=== PATIENT | male | born 1970 | race Caucasian/White ===

== ENCOUNTER 2023-02-10 09:33 | Oncology outpatient (recurring) (ONCR) | payer MEDICARE, MEDICAID, SELFPAY ==
[2023-02-10 11:04] LABS: Basophils # 0.1 10^3/uL (0.0-0.1); Basophils % 0.7 %; Eosinophils # 0.5 10^3/uL (0.0-0.8); Eosinophils % 4.2 %; Hematocrit 46.8 % (42.0-52.0); Hemoglobin 15.6 g/dL (11.7-16.6); Lymphocytes # 2.8 10^3/uL (0.8-4.8); Lymphocytes % 23.5 %; Mean Corpuscular HGB Conc 33.3 g/dL (30.0-36.0); Mean Corpuscular Hemoglobin 31.3 pg (28.0-34.0); Mean Corpuscular Volume 93.8 fl (80-94); Mean Platelet Volume 9.4 fL (7.4-10.4); Monocytes # 0.8 10^3/uL (0.2-0.9); Monocytes % 6.7 %; Neutrophils # 7.72 10^3/uL (1.8-7.7); Neutrophils % 64.4 %; Nucleated Red Blood Cells % 0 %; Platelet Count 307 10^3/cmm (130-400); Red Blood Count 4.99 10^6/uL (4.1-5.3); Red Cell Distribution Width 13.8 % (12.1-15.1)
[2023-02-10 11:05] LABS: Erythrocyte Sedimentation Rate 11 mm/hr (0-10)
[2023-02-14 10:49] LABS: P190 BCR ALB1 NOT DETECTED; P190 BCR ALB1 Yes Test Yes; P210 BCR ALB1 NOT DETECTED; P210 BCR ALB1 Yes Test Yes; Prior Results BLOOD; Source Blood
== END 2023-02-14 23:59 | disposition home or self-care (01) ==
PROVIDERS: Visit Provider Internal Medicine Medical Oncology
DX: D72.829 Elevated white blood cell count, unspecified (principal); Z87.891 Personal history of nicotine dependence
CPT/HCPCS: 36415; 81206; 81207; 85025; 85651; 99203

== ENCOUNTER → 2023-03-08 09:20 | Outpatient (BNVA) | payer MEDICARE, MEDICAID, SELFPAY | PROVIDERS: Visit Provider Internal Medicine Cardiovascular Disease | DX: I25.10 Atherosclerotic heart disease of native coronary artery without angina pectoris (principal) | CPT/HCPCS: 93005; 99204 ==

== ENCOUNTER → 2023-03-29 08:52 | Outpatient (BNVA) | payer SELFPAY | PROVIDERS: Visit Provider Nurse Practitioner Family | DX: M12.811 Other specific arthropathies, not elsewhere classified, right shoulder; Z96.612 Presence of left artificial shoulder joint | CPT/HCPCS: 20610; 73030; 99203; J1100; J2795; J3301 ==

== ENCOUNTER → 2023-08-10 09:50 | Outpatient (BNVA) | payer MEDICARE, SELFPAY | PROVIDERS: PCP Family Medicine; Visit Provider Nurse Practitioner | DX: M19.011 Primary osteoarthritis, right shoulder (principal) | CPT/HCPCS: 20610; 99214; J1040; J2795; J3301 ==

== ENCOUNTER 2023-09-02 07:28 | Outpatient (CLI) | payer MEDICARE, SELFPAY ==
--- NOTE | 2023-09-02 08:45 | MR_ITS ---
WS: [id number] MRI RIGHT SHOULDER NONCONTRAST TECHNIQUE: Sagittal T2, coronal T1, T2 and proton density imaging. Axial gradient PDE imaging. CLINICAL INFORMATION: Right shoulder COMPARISON: None. FINDINGS: Moderate degenerative arthritis AC joint with mild edema. Small amount of subacromial subdeltoid flui d. Normal bone marrow signal in the humerus and glenoid. Tiny tear supraspinatus insertion. Mild tend inopathy distal supraspinatus with mild chronic thinning. Normal infraspinatus and teres minor. Subsc apularis appears intact. Medial subluxation of the biceps tendon in the proximal bicipital groove. In tra-articular biceps tendon appears intact. Small amount of fluid in the rotator interval. Biceps lab ral appears intact. Glenoid labrum appears grossly intact. IMPRESSION: 1. Moderate degenerative arthritis AC joint with fluid and edema. Small amount of subacromial subdel toid fluid. Slight subacromial spurring. 2. Mild tendinopathy distal supraspinatus with a tiny insertional tear. 3. Biceps tendon intact within the bicipital groove. Medial subluxation of the biceps tendon in the proximal bicipital groove. 4. Intra-articular biceps tendon appears intact. 5. No other acute findings.
== END 2023-09-02 07:29 | disposition home or self-care (01) ==
LOC: RAD 07:29
PROVIDERS: PCP Family Medicine; Visit Provider Nurse Practitioner
DX: M19.011 Primary osteoarthritis, right shoulder (principal); M75.101 Unspecified rotator cuff tear or rupture of right shoulder, not specified as traumatic
CPT/HCPCS: 73221

== ENCOUNTER → 2023-09-15 08:58 | Outpatient (BNVA) | payer MEDICARE, SELFPAY | PROVIDERS: PCP Family Medicine; Visit Provider Nurse Practitioner Family | DX: I25.10 Atherosclerotic heart disease of native coronary artery without angina pectoris (principal); I10 Essential (primary) hypertension; Z87.891 Personal history of nicotine dependence | CPT/HCPCS: 99214 ==

== ENCOUNTER 2023-09-23 00:56 | Inpatient (IN) | payer MEDICARE, SELFPAY ==
[2023-09-23] VITALS (14 sets, daily range): BP systolic 100–139; BP diastolic 60–88; PULSE 54–77; RESP 16–18; TEMP 36.4–36.7; O2SAT 94–96
--- NOTE | 2023-09-23 01:00 | PC.NURSE ---
Patient arrived to the floor at 0045 via ems. Patient has been oriented to room and call light.
[2023-09-23 01:48] LABS: Glucose Point of Care 161 mg/dL (70-110)
--- NOTE | 2023-09-23 04:33 | USCV_ITS ---
Emerson Ovalle Age: 52 Gender: M : 1970 Exam Date: 09/23/2023 09:25 Ordering Phys: Yocasta Thomas MD Technologist: ESTEFANY Exam Location: [facility] [place] Indication: TIA BP: 125 / 77 HR: 63 Rhythm: Sinus Technical Quality: Adequate MEASUREMENTS (Male / Female) Normal Values 2D ECHO LV Diastolic Diameter PLAX 4.7 cm 4.2 - 5.9 / 3.9 - 5.3 cm IVS Diastolic Thickness 1.1 cm 0.6 - 1.0 / 0.6 - 0.9 cm IVS Systolic Thickness 1.9 cm LVPW Diastolic Thickness 1.7 cm 0.6 - 1.0 / 0.6 - 0.9 cm LVPW Systolic Thickness 2.4 cm LVOT Diameter 2.0 cm LV Ejection Fraction 2D Teich 68.5 % LV Ejection Fraction MOD 2C 51.6 % LV Ejection Fraction 2C AL 53.2 % LA Diameter 3.5 cm RA Systolic Volume 4C AL 24.4 ml RA Systolic Volume 4C MOD 23.0 ml Aorta at Sinotubular Diameter 2.4 cm IVC Diameter 1.2 cm M-MODE LA Ao Ratio MM 1.2 AV Cusp Separation MM 2.0 cm DOPPLER AV Peak Velocity 122.0 cm/s LVOT Peak Velocity 92.0 cm/s AV Area Cont Eq vti 2.3 cm squared AV Area Cont Eq pk 2.4 cm squared MV Peak Velocity 91.0 cm/s MV Area PHT 4.1 cm squared Mitral E to A Ratio 0.9 TR Peak Velocity 149.0 cm/s TR Peak Gradient 8.9 mmHg TR Mean Velocity 123.0 cm/s TR Mean Gradient 6.4 mmHg TR Velocity Time Integral 42.1 cm TV Peak E Velocity 51.0 cm/s Right Atrial Pressure 3.0 mmHg Pulmonary Artery Systolic Pressu 11.9 mmHg PV Peak Velocity 101.0 cm/s RV Ejection Time 0.3 s FINDINGS Left Ventricle Normal left ventricular size, systolic function and wall thickness, with no regional wall motion abnormalities. Normal left ventricular wall thickness. Normal diastolic filling pattern. Left ventricular ejection fraction is estimated at 60 %. Right Ventricle The right ventricle is normal in size and function. Right Atrium The right atrium is normal in size. Left Atrium The left atrium is normal in size. Mitral Valve Structurally normal mitral valve without significant stenosis or prolapse. There is no mitral regurgitation. Aortic Valve Structurally normal aortic valve without significant sclerosis or stenosis. There is no aortic regurgitation. Tricuspid Valve Structurally normal tricuspid valve. Trace tricuspid valve regurgitation. Pulmonic Valve Pulmonic valve not well visualized. Trace pulmonary valve regurgitation. Pericardium Normal pericardium without effusion. Aorta Normal ascending aorta dimension. IVC The inferior vena cava appears normal. CONCLUSIONS Normal transthoracic echocardiogram. There are no prior echocardiogram studies to compare. Dr. Denzel Awan MD (Electronically Signed) Final Date: 23 September 2023 14:25 S
--- NOTE | 2023-09-23 04:50 | P.HP_ITS ---
Providers/Chief Complaint Admitting Physician: Yocasta Thomas MD Primary Care Provider: Chadd Arevalo History of Present Illness Emerson Ovalle is a 52 year old male who was transferred to us from [facility]. Patient was in his usual state of health until this evening when he was driving home from work at around 5 PM. He developed sudden onset chest pain which was radiating into his bilateral shoulders. He felt like he was going to pass out. He had transient loss of vision he went home and lay on the couch. Upon going home his daughter noticed that he had some slurred speech and weakness in one of his arms and he was therefore brought into the emergency room at [facility]. He has recently been started on Ozempic in addition to other existing diabetic medications as outpatient, fingerstick is not available from the time of events. Patient is not very forthcoming with his symptoms, states he does not want to repeat his history 1 more time. Therefore sequence of events is derived from talking to ER physician at [facility] and reviewing his chart from there. CT of the head did not show any acute intracranial events. Telestroke service was consulted at [facility], patient was not considered to be a tPA candidate as most of his symptoms had resolved by the time he presented to the emergency room. They did however recommend an MRI for which she has been transferred here. Patient denies any past history of stroke. He has a past medical history of coronary artery disease, currently on dual antiplatelet and atorvastatin. With regards to his chest pain, baseline troponin at [facility] was normal. EKG did not show any acute ST-T wave changes. CTA of the chest was negative for PE. CT of the abdomen and pelvis was additionally performed to evaluate for any dissection, study was negative for any vascular abnormalities, however incidentally showed thickening of the descending colon. Patient denies any abdominal symptoms. Denies any abdominal pain nausea vomiting diarrhea or change in his bowel habits. Denies any blood in stools. States he had a colonoscopy a few years ago at [facility], he does not recall the results of the same. Incidentally he was also noted to have leukocytosis with a white blood cell count of 14.7, predominant neutrophilia at 70%. Review of records shows that patient is previously established care with hematology for leukocytosis. It appears his baseline counts range at around 12,000. At the time of last being seen in February 2023, it was thought to be reactive. Bone marrow aspiration versus observation was discussed, of which patient opted for observation. Peripheral blood studies were negative for CML. He denies any fever chills URI symptoms Review of Systems General: Reports: 10 or more systems reviewed and unremarkable except in HPI and below Const: Denies: fever(s), chills or body aches Eyes: Denies: change in vision, blurry vision or photophobia ENMT: Reports: hoarseness; Denies: throat pain, enlarged tonsils, odynophagia or nasal congestion Card: Denies: chest pain, palpitations, irregular heart rhythm, edema, swelling of feet/ankles, lightheadedness, pre-syncope, dyspnea on exertion or orthopnea Resp: Denies: dyspnea, productive cough, non-productive cough, wheezing, stridor, pain on inspiration, change in phlegm color, hemoptysis or chest congestion GI: Denies: abdominal pain, nausea, vomiting, hematemesis, coffee ground emesis, dysphagia, heartburn, diarrhea, constipation, GI cramping, change in stool character, hematochezia or melena : Denies: flank pain, dysuria, urinary frequency, urinary urgency, urinary hesitancy or hematuria Musc: Denies: neck pain, back pain, extremity pain, joint swelling, joint warmth or deformity Neuro: Denies: headache(s), numbness in extremities, weakness in extremities, sensory changes, difficulty walking, frequent falls, dizziness, vertigo, behavioral changes, Slurred speech present or seizure-like activity Psych: Denies: anxiety, depression, suicidal ideation or homicidal ideation Endo: Denies: polyuria, polydipsia, tired all the time, cold intolerance or hot flashes Bautista/Lymph: Denies: easy bruising or easy bleeding Medications/Allergies Home Medications Medication Instructions Recorded Confirmed Last Taken Type acetaminophen 500 mg tablet 1,000 mg PO Q6H PRN 02/10/23 09/15/23 Unknown History albuterol sulfate 90 mcg/actuation 2 puff inhalation Q6H PRN 02/10/23 09/15/23 Unknown History aerosol inhaler shortness of breath aspirin 81 mg chewable tablet 81 mg PO DAILY 02/10/23 09/15/23 Unknown History atorvastatin 80 mg tablet 80 mg PO DAILY 02/10/23 09/15/23 Unknown History clopidogrel 75 mg tablet 75 mg PO DAILY 02/10/23 09/15/23 Unknown History diazepam 5 mg tablet 5 mg PO DAILY PRN 02/10/23 09/15/23 Unknown History empagliflozin 25 mg tablet 25 mg PO DAILY 02/10/23 09/15/23 Unknown History fluticasone 100 mcg-salmeterol 50 1 inh inhalation BID 02/10/23 09/15/23 Unknown History mcg/dose blistr powdr for inhalation (Advair Diskus) gentamicin 0.1 % topical cream 1 applic topical DAILY 02/10/23 09/15/23 Unknown History hydrocodone 5 mg-acetaminophen 325 1 tab PO Q6H PRN 02/10/23 09/15/23 Unknown History mg tablet insulin degludec 100 unit/mL (3 See Rx Instructions SUBCUT DAILY 02/10/23 09/15/23 Unknown History mL) subcutaneous pen (Tresiba FlexTouch U-100 insulin) isosorbide mononitrate 60 mg 60 mg PO DAILY 02/10/23 09/15/23 Unknown History tablet,extended release 24 hr metformin 500 mg tablet 1,000 mg PO BID 02/10/23 09/15/23 Unknown History methylphenidate HCl 20 mg tablet 10 mg PO BID 02/10/23 09/15/23 Unknown History metoprolol tartrate 50 mg tablet 50 mg PO BID 02/10/23 09/15/23 Unknown History mupirocin 2 % topical ointment 1 applic topical DAILY 02/10/23 09/15/23 Unknown History nitroglycerin 0.4 mg sublingual 0.4 mg sublingual Q5M PRN 02/10/23 09/15/23 Unknown History tablet nystatin 100,000 unit/gram topical 1 applic topical BID 02/10/23 09/15/23 Unknown History powder pantoprazole 40 mg tablet,delayed 40 mg PO DAILY 02/10/23 09/15/23 Unknown History release pregabalin 150 mg capsule See Rx Instructions PO BID 02/10/23 09/15/23 Unknown History tamsulosin 0.4 mg capsule 0.4 mg PO DAILY 02/10/23 09/15/23 Unknown History vortioxetine 20 mg tablet 20 mg PO DAILY 02/10/23 09/15/23 Unknown History cholecalciferol (vitamin D3) 25 25 mcg PO DAILY PRN 03/08/23 09/15/23 Unknown History mcg (1,000 unit) capsule ferrous sulfate 324 mg (65 mg 324 mg PO DAILY PRN 03/08/23 09/15/23 Unknown History iron) tablet,delayed release fluticasone propionate 50 2 spray intranasal DAILY PRN 03/08/23 09/15/23 Unknown History mcg/actuation nasal spray,suspension lisinopril 10 mg tablet 10 mg PO BID PRN 03/08/23 09/15/23 Unknown History naloxone 4 mg/actuation nasal 4 mg intranasal Q2M PRN 03/08/23 09/15/23 Unknown History spray (Narcan) Allergies Allergy/AdvReac Type Severity Reaction Status Date / Time dulaglutide Allergy Intermediate unkown Verified 09/15/23 09:07 butterscotch flavor Allergy Mild dizziness Uncoded 09/15/23 09:07 PFSH Acute PFSH: Medical History Coronary artery disease Primary osteoarthritis, right shoulder Anemia Anxiety Arthritis Asthma Carpal tunnel syndrome COPD (chronic obstructive pulmonary disease) Depression Diabetes mellitus Diverticulitis Gallstones Gastric ulcer GERD (gastroesophageal reflux disease) Headache Hernia of abdominal wall Hypertension Hyperlipemia STEMI (ST elevation myocardial infarction) Benign prostate hyperplasia Bandemia CRUZ (dyspnea on exertion) Osteoarthritis Cognitive impairment Neuropathy Jock itch Leukocytosis Surgical History Stented coronary artery H/O eye surgery H/O skin graft History of surgery on lower extremity History of facial surgery Family History Father CAD (coronary artery disease) Diabetes Hypertension Grandfather CAD (coronary artery disease) Diabetes Mother Chronic kidney disease (CKD) Dementia Diabetes Hypertension Psychiatric illness Brother Diabetes Stroke Other Suicide Social History Smoking and tobacco/nicotine status: former use of tobacco/nicotine Quit status (tobacco/nicotine): has quit using Year quit tobacco: not sure of quit year Former quit date comment: 15 years Alcohol intake: never Vitals/I&O/Wt Last Vital Signs Temp 97.6 F 09/23/23 04:33 Pulse 68 09/23/23 04:33 Resp 18 09/23/23 04:33 BP 103/66 09/23/23 04:33 Pulse Ox 95 09/23/23 04:33 O2 Del Method Room Air 09/23/23 04:33 Weight last 48 hrs Weight 95.39 kg Physical Exam Narrative: General: No acute distress, AO x3 HEENT: PERRLA, pupils bilaterally equal and reactive, pallors not present Chest: Normal vesicular breath sounds, no added sounds, equal good air entry bilaterally CVS: S1-S2 regular, no murmurs, no tachycardia, no gallops, no rubs Abdomen: Soft, nontender, no organomegaly, bowel sounds present Neuro: No focal deficits, no facial deformity, AO x3, power 5/5 in all limbs Extremities: No warmth erythema or tenderness at the right shoulder. Noted Palpable edema just anterior to the joint. Data Other Labs: From [facility] labs at 6:30 PM on September 22, 2023 WBC count 14.7, hemoglobin 15.9, platelets 297 Differential with neutrophil fill 10.24 INR 1.0 ESR 5 Lactate 2.4 initially upon arrival, repeat checked at 1.4 D-dimer 1.84 Sodium 137, potassium 4.5, bicarb 24, creatinine 0.98, glucose 213, T. bili 0.4, alkaline phosphatase 113, AST 17, ALT 24 Lipase 18 CRP 3.2 Magnesium 2.0 BNP 114 Baseline troponin less than [address] head without contrast no intracranial hemorrhage or mass effect Chest x-ray pulmonary vascular congestion and cardiomegaly CTA chest abdomen and pelvis: Thoracic aorta containing small amount of atherosclerotic plaque, no acute cardiopulmonary findings, nonobstructing left nephrolithiasis, moderate amount of stool and small amount of gas throughout the colon. Sigmoid colon and descending colon have multiple diverticula without any surrounding fat stranding. There is a long segment of mild to moderate diffuse wall thickening in the descending colon and sigmoid colon. No fat stranding surrounding the segment of colon. Unremarkable appendix. UA negative leukocyte esterase, negative nitrate, positive glucose Urine drug screen positive for opiates positive for benzodiazepines Blood culture pending A&P Assessment and plan (1) TIA (transient ischemic attack): 52-year-old male presenting at outside hospital today with chief complaint of developing chest discomfort, visual disturbance, slurred speech, weakness in the right hand which later resolved. Presented to outside ER with above complaints CT head negative for acute intracranial abnormalities Evaluated by telestroke at [facility], recommended to obtain MRI Admit the patient to [facility] for neuro monitoring he is not a tPA candidate due to resolution of symptoms telemetry monitoring on the unit to evaluate for underlying arrhythmias. CT head unremarkable Check carotid Doppler Echocardiogram ordered and pending Continue aspirin 81 mg daily, Plavix and atorvastatin 80 mg daily Holding home dose of antihypertensives. Upon first presentation at outside hospital patient's heart rate was between 52-62 and corresponding blood pressure at 93/58 systolic. Blood pressure currently is improved at 103/66. Will hold home doses of Imdur, lisinopril today. Continue metoprolol, however reduced dose from 50 mg twice daily to 25 mg twice daily. Alternate possibility of his neurological symptoms today may have been syncope related to hypotension and/or bradycardia. Close monitoring of vitals and telemetry. PT OT speech therapy assessment (2) Shoulder pain: Complains of shoulder pain worse on the right Recent MRI of the shoulder from September 02, 2023 had shown moderate degenerative arthritis AC joint with fluid and edema. Small amount of subacromial subdeltoid fluid. Noted subacromial spurring. Tendinopathy of the distal supraspinatus tendon with an insertional tear of the tendon. Medial subluxation of the biceps tendon in the proximal bicipital groove. He follows with orthopedics service, recently had steroid injection placed into the joint. As needed morphine alternating with hydrocodone/APAP for pain management. No swelling erythema warmth or tenderness at joint. Normal inflammatory markers including ESR and CRP. Low probability of septic arthritis. (3) Leukocytosis: Chronic leukocytosis for which patient has been evaluated by hematology in the past. Per review of notes patient has had intermittent neutrophilia dating back to 2019. He has had a prior flow cytometry in January 2020 which was negative. He had a PET scan in August 2022 which was negative for any evidence of gross malignancy. He has longstanding cervical lymphadenopathy however PET scan did not reveal any gross abnormalities. BCR-ABL mutation was negative. He has not been seen in follow-up since February 2023. No current localizing signs or symptoms of an infective process. (4) Colon wall thickening: Incidental finding with ascending colon mild to moderate thickening on CT abdomen and pelvis without fat stranding. Patient currently denies any abdominal symptoms including abdominal pain nausea or vomiting. He has not had any change in his bowel movements. No blood in stools. Abdominal exam is benign today. No tenderness encountered. He had a colonoscopy several years ago at [facility], does not recall results of the same. Lower concern for infectious colitis given absence of any abdominal symptoms and benign abdominal exam. Check procalcitonin. Monitor off antibiotics for now unless new symptoms develop. (5) Hypertension: Holding antihypertensives as noted above Qualifiers: Hypertension type: primary hypertension Qualified Code(s): I10 - Essential (primary) hypertension (6) Diabetes mellitus: Insulin sliding scale (7) COPD (chronic obstructive pulmonary disease): Not currently exacerbated, DuoNeb every 6 hours inhalation Plan Chest pain: CTA chest negative for PE. Troponin negative. Serial troponins to be checked now. Continue home doses of pregabalin, methylphenidate and vortioxetine DVT prophylaxis: Lovenox Full code Attestations Medical Necessity Statement*: Greater than 2 midnight stay is anticipated Coding Level of Care Code Acute Code for [facility] Fwd Diagnoses TIA (transient ischemic attack) G45.9 Shoulder pain M25.519 Leukocytosis D72.829 Colon wall thickening K63.9 Primary hypertension I10 Hypertension type: primary hypertension Diabetes mellitus E11.9 COPD (chronic obstructive pulmonary disease) J44.9
[2023-09-23] MEDS: morphine 4 mg/mL SDV 1 mL 2 MG IVP (04:59)
[2023-09-23] MEDS: enoxaparin 40 mg/0.4 mL Syringe SUBCUT (05:48)
[2023-09-23 05:51] LABS: Basophils # 0.1 10^3/uL (0.0-0.1); Basophils % 0.6 %; Eosinophils # 0.3 10^3/uL (0.0-0.8); Eosinophils % 3.5 %; Hematocrit 41.9 % (37-53); Lymphocytes # 3.3 10^3/uL (0.8-4.8); Lymphocytes % 34.2 %; Mean Corpuscular HGB Conc 33.4 g/dL (30-55); Mean Corpuscular Hemoglobin 30.7 pg (27-33); Mean Corpuscular Volume 91.9 fl (82-101); Mean Platelet Volume 9.7 fL (7.4-10.4); Monocytes # 0.8 10^3/uL (0.2-0.9); Monocytes % 8.1 %; Neutrophils # 5.14 10^3/uL (1.8-7.7); Neutrophils % 53.1 %; Nucleated Red Blood Cells % 0 %; Platelet Count 274 10^3/cmm (157-399); Red Blood Count 4.56 10^6/uL (3.85-5.65); Red Cell Distribution Width 12.9 % (12.1-15.1)
--- NOTE | 2023-09-23 05:55 | ECG_ITS ---
[facility] Test Date: 2023-09-23 Pat Name: Emerson Ovalle Department: Room: 276 Gender: Male Category Manager: : 1970 Requested By: Yocasta Thomas Order Number: [id number] Vicenta MD: Checo Dick M.D. Measurements Intervals [place] Rate: 56 P: 35 CT: 203 QRS: 29 QRSD: 102 T: 38 QT: 396 QTc: 385 Interpretive Statements SINUS BRADYCARDIA Compared to ECG 03/08/2023 09:25:31 Sinus rhythm no longer present Electronically Signed On 09-23-2023 17:32:51 HYDROGRAPHY TEACHER by Checo Dick M.D. [email or web address] general [id number]
[2023-09-23 06:07] LABS: Estmated Average Glucose 206; Hemoglobin A1C 8.8 % (4.0-6.0)
[2023-09-23 06:15] LABS: Troponin(5th) Baseline < 6 ng/L (0-15)
[2023-09-23 06:25] LABS: Procalcitonin 0.07 ng/mL (0-0.5)
[2023-09-23 06:36] LABS: Alanine Aminotransferase 20 U/L (0-41); Albumin Level 3.5 g/dL (3.5-5.2); Alkaline Phosphatase 94 U/L (40-130); Anion Gap 11.4 (5-19); Aspartate Amino Transferase 13 U/L (0-40); Blood Urea Nitrogen 18 mg/dL (6-20); Calcium 9.1 mg/dL (8.5-10.5); Carbon Dioxide 26 mmol/L (22-29); Chloride 107 mmol/L (98-107); Chol HDL Ratio 4.27 mg/dL (1.0-5.00); Cholesterol 141 mg/dL (0-200); Creatinine Clr Calc Pharmacy 118.6643; Globulin 2.2 g/dL (1.3-4.6); Glomerular Filtration Rate 101.5 mL/min (90-130); Glucose 120 mg/dL (65-115); HDL Cholesterol 33 mg/dL (60-100); LDL Cholesterol Calculated 61 mg/dL (50-129); LDL HDL Ratio 1.85 RATIO (0.00-3.22); Osmolality Calculated 293 mOsm/kg (285-295); Potassium 4.4 mmol/L (3.5-5.1); Sodium 140 mmol/L (136-145); Total Bilirubin 0.4 mg/dL (0.15-1.2); Total Protein 5.7 g/dL (6.6-8.7); Triglycerides 233 mg/dL (0-150)
[2023-09-23 06:40] LABS: Glucose Point of Care 146 mg/dL (70-110)
[2023-09-23 08:06] LABS: Troponin 5 2HR 6.32 ng/L (0-15); Troponin 5 2HR Delta 0.32001 ABS# (0-10)
[2023-09-23] MEDS: ipratropium-albuterol 3 mL Neb INHALATION (08:22)
[2023-09-23] MEDS: atorvastatin 40 mg Tablet 80 MG PO (09:03)
[2023-09-23] MEDS: metoprolol tartrate 50 mg Tablet 25 MG PO ×2 (09:04→17:14)
[2023-09-23] MEDS: pregabalin 150 mg Capsule 300 MG PO (09:04)
[2023-09-23] MEDS: aspirin 81 mg EC Tablet PO (09:04)
[2023-09-23] MEDS: clopidogrel 75 mg Tablet PO (09:04)
[2023-09-23] MEDS: pantoprazole DR 40 mg Tablet PO (09:04)
[2023-09-23] MEDS: tamsulosin 0.4 mg Capsule 0.400000000000000022 MG PO (09:05)
[2023-09-23] MEDS: lidocaine 5% Patch 1 PATCH TOPICAL (09:05)
[2023-09-23] MEDS: insulin lispro 100 unit/1 mL SUBCUT ×2 (09:06→17:14)
[2023-09-23] MEDS: methylphenidate 10 mg Tablet PO ×2 (09:09→17:14)
[2023-09-23] MEDS: HYDROcodone-acetaminophen 5-325 mg Tablet 1 TAB PO ×3 (09:15→18:43)
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
--- NOTE | 2023-09-23 09:36 | PC.PHAR ---
PTS DAUGHTER IS BRINGING PTS HOME MEDICATIONS IN- ETA 10:30 AM
--- NOTE | 2023-09-23 10:55 | PC.PHAR ---
PT WAS ON PLAVIX 75 MG DAILY- PRESCRIPTION 09/17/23 HAD 7 REFILLS REMAINING- PT STS HE TOOK IT LAST APROX. 1 WEEK AGO
[2023-09-23 11:01] LABS: Glucose Point of Care 135 mg/dL (70-110)
[2023-09-23 13:16] LABS: Troponin 5 6HR Delta 0.00001 ng/L (0-12)
[2023-09-23 16:52] LABS: Glucose Point of Care 190 mg/dL (70-110)
[2023-09-23] MEDS: pregabalin 150 mg Capsule PO (17:14)
--- NOTE | 2023-09-23 19:34 | PC.NURSE ---
Patient was awaiting an MRI which now has been decided to be done out patient. Patient then had to wait for his daughter to come and pick him up. Patient is A&Ox3. Respirations even and non-labored on room air. Patient wheel chaired to private car.
== END 2023-09-23 19:34 | disposition home or self-care (01) | DRG 69 ==
PROVIDERS: Admitting Provider Student in an Organized Health Care Education/Training Program; PCP Family Medicine; Visit Provider Internal Medicine
DX: G45.9 Transient cerebral ischemic attack, unspecified (principal); E11.42 Type 2 diabetes mellitus with diabetic polyneuropathy; I25.10 Atherosclerotic heart disease of native coronary artery without angina pectoris; J44.9 Chronic obstructive pulmonary disease, unspecified; F32.A Depression, unspecified; K21.9 Gastro-esophageal reflux disease without esophagitis; I10 Essential (primary) hypertension; E78.5 Hyperlipidemia, unspecified; M25.511 Pain in right shoulder; I25.2 Old myocardial infarction; Z79.02 Long term (current) use of antithrombotics/antiplatelets; Z79.85 Long-term (current) use of injectable non-insulin antidiabetic drugs; Z79.82 Long term (current) use of aspirin; Z79.4 Long term (current) use of insulin; Z79.84 Long term (current) use of oral hypoglycemic drugs; Z87.891 Personal history of nicotine dependence
CPT/HCPCS: 36415; 36416; 80053; 80061; 82962; 83036; 84145; 84484; 85025; 92610; 93005; 93306; 94640; 96372; 97165; J1650; J1815; J2270

== ENCOUNTER → 2023-10-10 09:42 | Outpatient (BNVA) | payer MEDICARE, SELFPAY | PROVIDERS: PCP Family Medicine; Visit Provider Nurse Practitioner | DX: M19.011 Primary osteoarthritis, right shoulder (principal); M67.911 Unspecified disorder of synovium and tendon, right shoulder | CPT/HCPCS: 36415; 80053; 85025; 99214 ==

== ENCOUNTER → 2023-11-16 09:07 | Outpatient (BNVA) | payer MEDICARE, SELFPAY | PROVIDERS: PCP Family Medicine; Visit Provider Family Medicine | DX: Z01.818 Encounter for other preprocedural examination (principal) | CPT/HCPCS: 85025 ==

== ENCOUNTER → 2023-11-29 09:17 | Outpatient (BNVA) | payer MEDICARE, SELFPAY | PROVIDERS: PCP Family Medicine; Visit Provider Family Medicine | DX: Z01.818 Encounter for other preprocedural examination (principal) | CPT/HCPCS: 81003 ==

== ENCOUNTER → 2023-12-02 10:04 | Outpatient (BNVA) | payer MEDICARE, SELFPAY | PROVIDERS: PCP Family Medicine; Visit Provider Family Medicine | DX: Z01.818 Encounter for other preprocedural examination (principal) | CPT/HCPCS: 80048; 85025 ==

== ENCOUNTER → 2024-03-15 11:43 | Outpatient (BNVA) | payer MEDICARE, SELFPAY | PROVIDERS: PCP Family Medicine; Visit Provider Internal Medicine Cardiovascular Disease | DX: I25.10 Atherosclerotic heart disease of native coronary artery without angina pectoris (principal); E78.2 Mixed hyperlipidemia; I10 Essential (primary) hypertension; R06.09 Other forms of dyspnea; Z87.891 Personal history of nicotine dependence | CPT/HCPCS: 99214 ==

== ENCOUNTER → 2024-03-26 08:15 | Outpatient (BNVA) | payer MEDICARE, SELFPAY | PROVIDERS: PCP Family Medicine; Visit Provider Nurse Practitioner | DX: M19.011 Primary osteoarthritis, right shoulder (principal); M67.911 Unspecified disorder of synovium and tendon, right shoulder | CPT/HCPCS: 20610; 99214; J1100; J2795; J3301 ==

== ENCOUNTER → 2024-05-14 08:19 | Outpatient (BNVA) | payer MEDICARE, SELFPAY | PROVIDERS: PCP Family Medicine; Visit Provider Nurse Practitioner | DX: M19.011 Primary osteoarthritis, right shoulder (principal); M67.911 Unspecified disorder of synovium and tendon, right shoulder; E11.9 Type 2 diabetes mellitus without complications; Z01.818 Encounter for other preprocedural examination | CPT/HCPCS: 36415; 80053; 81001; 83036; 85025; 93005; 99214 ==

== ENCOUNTER 2024-05-29 09:37 | Day surgery (SDC) | payer MEDICARE, SELFPAY ==
[2024-05-29] VITALS (12 sets, daily range): BP systolic 121–159; BP diastolic 75–99; PULSE 55–76; RESP 12–21; TEMP 36.1–36.6; O2SAT 92–95; BMI 33.6
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
[2024-05-29] MEDS: CELEcoxib 200 mg Capsule 400 MG PO (10:32)
[2024-05-29] MEDS: acetaminophen 1,000 MG/100 ML PIGGYBACK 400 MG IV (10:32)
[2024-05-29] MEDS: sodium chloride 0.9% 1,000 ML 30 ML IV (10:32)
[2024-05-29] MEDS: gabapentin 300 mg Capsule PO (10:33)
--- NOTE | 2024-05-29 10:38 | P.HPUD_ITS ---
Surgery/Procedure H&P Update DATE OF PROCEDURE: May 29, 2024 DATE H&P PERFORMED: 05/14/24 H&P UPDATE INFORMATION: I have reviewed H&P completed within last 30 days, I have examined patient prior to procedure, No changes to prior documentation and [place] [facility] [place] date indicated PRIMARY INDICATION FOR PROCEDURE: Right shoulder impingement, possible rotator cuff tear, and acromioclavicular joint osteoarthritis PLANNED PROCEDURE: Operation Date: 05/29/24 11:30 Proposed Procedures p Acromioplasty(Right) - MD chad Concepcion Distal Clavicle Resection(Right) - MD chad Concepcion Debridement Upper Extremity(Right) - MD cahd Concepcion Rotator Cuff Repair - Open(Right) - Alena Cueto MD Related Problem List Diagnoses (1) Rotator cuff arthropathy of right shoulder: (2) Tendinopathy of right rotator cuff: (3) Acromioclavicular joint pain: Qualifiers: Laterality: right Qualified Code(s): M25.511 - Pain in right shoulder
--- NOTE | 2024-05-29 10:50 | ANES.PROC ---
Anesthesia Procedures Procedure/Date: 05/29/24 Nerve Block ^: Nerve Block 1: Main Anesthesia: other (100mcg fentanyl and 2mg versed) Time Out Performed: Yes Consent: requested by attending/covering physician and from patient Nerve block location: interscalene Anesthesia monitors applied: pulse oximetry, EKG, BP cuff and oxygen Anesthetic Used: ropivicaine 0.5% Amount of anesthesia used (mL): 30 Ultrasound used to: recognize landmarks Nerve Stimulator Used?: Yes Interscalene/Femoral BLK: other needle (pjunk) Injection: neg aspiration of heme Patient Tolerated Procedure: well Complications: none
--- NOTE | 2024-05-29 11:13 | PC.NURSE ---
1040: KAMLA performed an interscalene block of right shoulder using ultrasound guidance and injecting 30 ml of .5% ropivicaine
[2024-05-29] MEDS: ceFAZolin 2,000 mg SDV 2000 MG IVP (11:14)
[2024-05-29] MEDS: ceFAZolin 1,000 mg SDV 1000 MG IRRIGATION (12:19)
--- NOTE | 2024-05-29 13:14 | P.OP_ITS ---
Operative Report Date of procedure: May 29, 2024 Pre-op diagnosis: Right rotator cuff arthropathy with acromioclavicular joint and glenohumeral joint osteoarthritis, impingement, and possible rotator cuff tear Post-op diagnosis: Right rotator cuff tear with acromioclavicular joint osteoarthritis as well as glenohumeral arthritis, impingement, and rotator cuff arthropathy Post-op findings: Complete tear of the supraspinatus insertion as well as impingement, osteoarthritis acromioclavicular joint and rotator cuff arthropathy Procedure done: Right shoulder rotator cuff repair with Biosteon Enterline anchor and with distal clavicle resection and acromioplasty with PRP Implants: Biosteon intra line 5.5 mm SCHROEDER suture anchor with 2 #2 Force Fiber's Specimens removed/disposition: Bone, disposed of Surgeon: Alena Cueto MD Software Licensing Analyst: Krystal Morejon, nurse practitioner, whose services were needed for positioning, retraction, and closure. Anesthesia: General (With interscalene block) Estimated blood loss (mL): 50 IV fluids (mL): 700 Urine output (mL): 0 (No Diggs) Complications: None Findings: Significant impingement with complete rotator cuff tear at the insertion of the supraspinatus tendon. Condition: stable Disposition: PACU Brief History: This 53 gentleman presented to the office for right shoulder pain evaluation. He had injection therapies which were unsuccessful. The patient continued to have symptoms. MRI demonstrated moderate acromioclavicular joint osteoarthritis with mild tendinopathy of the distal supraspinatus and an insertional site tear. The biceps tendon was intact. Surgical intervention was discussed with the patient. Questions were answered and consents were signed. The patient's A1c which was elevated previously when he was scheduled for surgical intervention had normalized and was felt acceptable for surgery. Consents were signed in the office. Procedure: The patient was brought to the operating theater and underwent general intubated anesthesia, ASA 3. The patient was placed in a beachchair position and subsequently the right upper extremity was prepped and draped in the usual fashion utilizing DuraPrep. The arm was draped free. A surgical pause was performed prior to commencement of the surgical procedure. At the time of the surgical pause, we confirmed the site and side of surgery as well as administration of appropriate preoperative antibiotics Ancef 2 g. MRI was also reviewed at that time. Following the surgical pause, an incision was made at approximate level of the acromioclavicular joint extending across the anterolateral corner of the acromion and distally as necessary. Care was taken to avoid injury to the axillary nerve by limiting the distal extent of the incision. Dissection continued through skin and soft tissues using a scalpel. Hemostasis was obtained using electrocautery. Soft tissues were elevated off the acromion. An acromioplasty was then accomplished using a combination of a saw and a power rasp. With this, we were able to remove compression caused by the acromion. The rotator cuff was then evaluated to look for tears. Bursectomy was accomplished. Evaluation of the rotator cuff then demonstrated a small horizontal type tear at the insertion point of the distal supraspinatus onto the greater tuberosity of the humerus. This was felt large enough to require a suture anchor with 2 sutures to repair. The edges were freshened using a scalpel. The reattachment point bony on the humeral head was addressed with a rongeur to prepare a bed for appropriate repair. An anchor was then placed to repair the horizontal portion of the tear. After the rotator cuff had been thus addressed, 0 Vicryl was utilized to smooth the edges at the level of the repair. Attention was directed to the acromioclavicular joint which was well exposed. A saw was then used to resect the distal clavicle without difficulty. The undersurface of the clavicle was palpated and was slightly further debrided. A power rasp was used to further smooth the area. When this was felt to be adequately resected, the wound was irrigated. The shoulder was placed through further range of motion to assure there was no further evidence of rotator cuff tear. Finding none, attention was then directed to closure. The wound was irrigated. PRP was then placed at the site of the rotator cuff repair, and closure was accomplished with 0 Vicryl in the capsular tissues overlying the acromioclavicular joint area as well as over the acromion and down into the deltoid muscle. 3-0 Monocryl was used to close the subcutaneous tissues followed by 4-0 Monocryl subcuticular closure. This was followed by Dermabond, Steri-Strips, and OpSite. An ABD was placed in the axilla. The patient was placed in a slingshot style sling and was returned to the recovery room in satisfactory condition. The patient will be discharged to home to follow-up in the office as scheduled. There were no complications and no specimens. Related Problem List Diagnoses (1) Right rotator cuff tear: (2) Rotator cuff arthropathy of right shoulder: (3) Impingement of right shoulder: (4) Arthritis of right acromioclavicular joint: (5) Primary osteoarthritis, right shoulder:
--- NOTE | 2024-05-29 13:29 | PC.NURSE ---
awakes to verbal stimuli. Oral airway removed
--- NOTE | 2024-05-29 14:55 | ANE.PACU2 ---
Inpatient post-anesthesia follow up: Airway intact: Yes Vital signs: Temperature 97.8 F Pulse Rate 62 Respiratory Rate 17 Blood Pressure 126/82 Pulse Oximetry 93 Oxygen Delivery Me thod Room Air Oxygen Flow Rate 2 Fraction of Inspir ed Oxygen Hydration adequate: Yes Nausea and vomiting: No Pain level: 1 Mental status: Baseline
[2024-05-30 05:28] LABS: Glucose Point of Care 75 mg/dL (70-110)
== END 2024-05-29 14:55 | disposition home or self-care (01) ==
PROVIDERS: PCP Family Medicine; Visit Provider Specialist
PROC: (CPT 23130; principal; 2024-05-29 11:10)
PROC: (CPT 23120; 2024-05-29 11:10)
PROC: (CPT 23412; 2024-05-29 11:10)
PROC: (CPT 23412; 2024-05-29 11:10)
DX: M19.011 Primary osteoarthritis, right shoulder (principal); M25.811 Other specified joint disorders, right shoulder; M75.121 Complete rotator cuff tear or rupture of right shoulder, not specified as traumatic; E11.9 Type 2 diabetes mellitus without complications; I10 Essential (primary) hypertension; K21.9 Gastro-esophageal reflux disease without esophagitis; Z79.82 Long term (current) use of aspirin; Z79.84 Long term (current) use of oral hypoglycemic drugs; Z79.4 Long term (current) use of insulin; Z86.73 Personal history of transient ischemic attack (TIA), and cerebral infarction without residual deficits; J44.9 Chronic obstructive pulmonary disease, unspecified; F32.A Depression, unspecified; I25.2 Old myocardial infarction; Z87.891 Personal history of nicotine dependence
CPT/HCPCS: 23412; 23120; 36416; 82962; C1713; J0131; J0690; J1100; J2405; J2704; J3010; J3490; J7030

== ENCOUNTER → 2024-06-13 11:35 | Outpatient (BNVA) | payer MEDICARE, SELFPAY | PROVIDERS: PCP Family Medicine; Visit Provider Nurse Practitioner | DX: M75.121 Complete rotator cuff tear or rupture of right shoulder, not specified as traumatic (principal); M25.811 Other specified joint disorders, right shoulder | CPT/HCPCS: 73030; 99024 ==

== ENCOUNTER → 2024-06-29 10:46 | Outpatient (BNVA) | payer MEDICARE, SELFPAY | PROVIDERS: PCP Family Medicine; Visit Provider Nurse Practitioner | DX: Z98.890 Other specified postprocedural states (principal); Z48.89 Encounter for other specified surgical aftercare | CPT/HCPCS: 99024 ==

== ENCOUNTER 2024-07-26 08:41 | Outpatient (RCR) | payer MEDICARE, SELFPAY | END 2024-08-17 23:59 | disposition home or self-care (01) | LOC: SPT 08:41 | PROVIDERS: PCP Family Medicine; Visit Provider Nurse Practitioner | DX: Z98.890 Other specified postprocedural states (principal) | CPT/HCPCS: 97110; 97161 ==

== ENCOUNTER 2024-08-18 06:30 | Outpatient (RCR) | payer MEDICARE, SELFPAY | END 2024-09-14 23:59 | disposition home or self-care (01) | LOC: SPT 06:30 | PROVIDERS: PCP Family Medicine; Visit Provider Nurse Practitioner | DX: Z98.890 Other specified postprocedural states (principal) | CPT/HCPCS: 97110 ==